=== PATIENT | female | born 1955 | race Caucasian/White ===

== ENCOUNTER 2016-11-28 16:12 | Emergency (ER) | payer BC ==
--- NOTE | 2016-11-28 16:24 | EDM.PDOC ---
ED HPI Trauma - General Chief Complaint: Trauma Stated Complaint: LEFT ANKLE Time Seen by Provider: 11/28/16 16:15 Source: Reports: Patient History Limitations: Reports: No limitations - History of Present Illness INITIAL COMMENTS - FREE TEXT/NARRATIVE: 61 yo female presents with L ankle pain after a fall on some steps in the dark. Has not been able to bear weight since the injury. Has minimal R ankle pain as well. Symptom Onset Date: 11/28/16 Symptom Onset Time: 15:15 Occurred When: just prior to arrival, this afternoon Occurred Where: other ([place]) Method of Injury: fall Severity: moderate Pain/Injury Location: Reports: lower extremity, right, lower extremity, left Consciousness: Reports: no loss of consciousness Associated Symptoms: Reports: denies other symptoms Allergies/ADRs: Allergies Penicillins Allergy (Verified 11/28/16 16:22) Rash red dye Allergy (Verified 11/28/16 16:23) Hives Home Medications: Ambulatory Orders . [Unable to Verify Home Med List] 05/29/14 [Confirmed 05/29/14] Past Medical History Other OB/BYN History: MENOPAUSE Social & Family History - Tobacco Use Smoking Status *Q: Never Smoker - Alcohol Use Days Per Week of Alcohol Use: 0 - Recreational Drug Use Recreational Drug Use: No - Living Situation & Occupation Living situation: Reports: single Occupation: employed Review of Systems - Review of Systems Review Of Systems: See Below Constitutional: Reports: no symptoms Ears: Reports: no symptoms Nose: Reports: no symptoms Respiratory: Reports: No Symptoms Cardiovascular: Reports: no symptoms GI/Abdominal: Reports: No symptoms Musculoskeletal: Reports: joint pain (L and R ankle pain), joint swelling (both ankles L > R) Skin: Reports: bruising (L distal tibia region. ) Neurological: Reports: No Symptoms Trauma Exam - Physical Exam Exam: See Below Exam Limited By: No limitations General Appearance: Reports: alert, WD/WN, no apparent distress Head: Reports: atraumatic, normocephalic Eyes: bilateral eye: normal inspection, PERRL Ears: Reports: normal external exam, normal canal, hearing grossly normal Nose: Reports: normal inspection, normal mucousa, no blood Throat/Mouth: Reports: Normal inspection, Normal lips, Normal voice, No airway compromise Neck: Reports: non-tender, full range of motion Respiratory Exam: Reports: no respiratory distress, no accessory muscle use Cardiovascular: Reports: regular rate, rhythm Back: Reports: non-tender Extremities: Reports: bony-point tenderness, pedal edema, tenderness, unable to bear weight, other (R ankle has some minimal swelling anterior to the lateral malleolus, negative drawer sign. L ankle is swollen and slightly ecchymotic about 3 cm above the medial malleolus. ) Neurologic: Reports: no motor/sensory deficits, alert, normal mood/affect, oriented x 3 Skin: Reports: Normal color - Terri Coma Score Best Eye Response (Terri): (4) open spontaneously Best Verbal Response (Supply): (5) oriented Best Motor Response (Supply): (6) obeys commands Supply Total: 15 Course - Vital Signs Text/Narrative:: L tib/fib [id number] fx without dislocation Toradol 60 mg IM, percocet [address] Crooks reached @ 1740h Splint applied. Crutches provided. Last Recorded V/S: Last Vital Signs Temp 36.1 C 11/28/16 16:23 Pulse 97 11/28/16 16:23 Resp 14 11/28/16 16:23 BP 145/88 H 11/28/16 16:23 Pulse Ox 98 11/28/16 16:23 - Orders/Labs/Meds Orders: Active Orders 24 hr Category Date Time Status Tibia Fibula Lt [CR] Stat Exams 11/28/16 16:17 Taken Sodium Chloride 0.9% [Saline Flush] Med 11/28/16 17:13 Active 10 ml FLUSH ASDIRECTED PRN Saline Lock Insert [OM.PC] Routine Oth 11/28/16 17:13 Ordered Medication Orders Sodium Chloride (Saline Flush) 10 ml FLUSH ASDIRECTED PRN PRN Reason: Keep Vein Open Meds: Medications Generic Name Dose Route Start Last Admin Trade Name Freq PRN Reason Stop Dose Admin Sodium Chloride 10 ml 11/28/16 17:13 Saline Flush FLUSH ASDIRECTED PRN Keep Vein Open Discontinued Medications Generic Name Dose Route Start Last Admin Trade Name Freq PRN Reason Stop Dose Admin Ketorolac Tromethamine 60 mg 11/28/16 17:06 Toradol IM 11/28/16 17:07 ONETIME ONE Ketorolac Tromethamine 30 mg 11/28/16 17:13 Toradol IVPUSH 11/28/16 17:14 ONETIME ONE Departure - Departure Time of Disposition: 18:15 Disposition: Home, Self-Care 01 Clinical Impression: Trimalleolar fracture of left ankle Qualifiers: Encounter type: initial encounter Fracture type: closed Qualified Code(s): S82.852A - Displaced trimalleolar fracture of left lower leg, initial encounter for closed fracture Referrals: PCP,None [Primary Care Provider] - - My Orders Last 24 Hours: My Active Orders 11/28/16 16:17 Tibia Fibula Lt [CR] Stat 11/28/16 17:13 Sodium Chloride 0.9% [Saline Flush] 10 ml FLUSH ASDIRECTED PRN Saline Lock Insert [OM.PC] Routine - Assessment/Plan Last 24 Hours: My Active Orders 11/28/16 16:17 Tibia Fibula Lt [CR] Stat 11/28/16 17:13 Sodium Chloride 0.9% [Saline Flush] 10 ml FLUSH ASDIRECTED PRN Saline Lock Insert [OM.PC] Routine
[2016-11-28] MEDS ORDERED: Ketorolac 60 MG/2 ML SDV IM ONE ×2 (17:06→17:45)
[2016-11-28] MEDS ORDERED: Sodium Chloride 0.9% 10 ML Syringe FLUSH PRN (17:13)
[2016-11-28] MEDS ORDERED: Ketorolac 30 MG/ML SDV IVPUSH ONE (17:13)
[2016-11-28] MEDS ORDERED: Acetaminophen/oxyCODONE 325-5 MG Tab PO ONE (17:57)
[2016-11-28] MEDS ORDERED: Acetaminophen/HYDROcodone 325-5 MG Tab PO ONE ×2 (18:02→18:10)
[2016-11-28 18:32] VITALS: BP 135/70
--- NOTE | 2016-11-29 09:43 | CR ---
INDICATION: Fell down stairs. LEFT TIBIA AND FIBULA: Four images of the left tibia and fibula in frontal and lateral projections revealed comminuted medial and lateral malleolar fractures with a posterior malleolar fracture also noted. Position and alignment appears to be fairly adequate, with only minimal offsets posteriorly at the posterior malleolar fracture fragment and the distal fibular fracture fragment. The ankle mortise may be slightly widened medially - minimal lateral subluxation of the talus with respect to the tibia may be present. No other fracture, dislocation, or other significant bone or joint abnormality was identified. IMPRESSION: Trimalleolar fracture with only minimal subluxation of the ankle mortise. MTDD
== END 2016-11-28 18:29 | disposition home or self-care (01) ==
LOC: FB.ED 16:12
DX: S82.852A Displaced trimalleolar fracture of left lower leg, initial encounter for closed fracture (principal); Z88.0 Allergy status to penicillin; Z91.041 Radiographic dye allergy status; X58.XXXA Exposure to other specified factors, initial encounter
CPT/HCPCS: 73590; 96372; 99283; A9270; J1885

== ENCOUNTER 2016-11-29 10:14 | Day surgery (SDC) | payer BC ==
[2016-11-29] MEDS ORDERED: hydrOXYzine HCl 50 MG/ML SDV IM ONE (11:15)
[2016-11-29] MEDS ORDERED: Succinylcholine 200 MG/10 ML MDV IV ONE (11:15)
[2016-11-29] MEDS ORDERED: Glycopyrrolate 0.2 MG/ML 2 ML SDV IV ONE (11:15)
[2016-11-29] MEDS ORDERED: Ondansetron 4 MG/2 ML SDV IVPUSH ONE (11:15)
[2016-11-29] MEDS ORDERED: diphenhydrAMINE 50 MG/ML SDV IV ONE (11:15)
[2016-11-29] MEDS ORDERED: Propofol 200 MG/20 ML SDV IV ONE (11:15)
[2016-11-29] MEDS ORDERED: Ketorolac 30 MG/ML SDV IVPUSH ONE (11:15)
[2016-11-29] MEDS ORDERED: Morphine 10 MG/ML Syringe IVPUSH ONE (11:15)
[2016-11-29] MEDS ORDERED: Dexamethasone 4 MG/ML 5 ML MDV IVPUSH ONE (11:15)
[2016-11-29] MEDS ORDERED: Rocuronium 100 MG/10 ML MDV IV ONE (11:15)
[2016-11-29] MEDS ORDERED: fentaNYL 100 MCG/2 ML SDV IV ONE (11:15)
[2016-11-29] MEDS ORDERED: Flumazenil 0.1 MG/ML 5 ML MDV IV ONE (11:15)
[2016-11-29] MEDS ORDERED: Neostigmine Methylsulfate 1 MG/ML 5 ML Syringe IV ONE (11:15)
[2016-11-29] MEDS ORDERED: Midazolam 1 MG/ML 2 ML SDV IV ONE (11:15)
[2016-11-29] MEDS ORDERED: Lactated Ringers 1,000 ML IV ONE (11:15)
[2016-11-29] MEDS ORDERED: Lactated Ringers 1,000 ML IV SCH (13:45)
[2016-11-29] MEDS ORDERED: Acetaminophen/HYDROcodone 325-5 MG Tab PO PRN (13:45)
--- NOTE | 2016-11-29 13:45 | CT ---
INDICATION: Left ankle fracture. CT ANKLES: Spiral 0.63-mm axial sections were obtained through the ankles bilaterally with sagittal and coronal reconstructions and revealed the trimalleolar fracture with lateral subluxation of the talus with respect to the tibia. Offset of the distal fracture fragments of the medial and lateral malleoli are noted, with some separation of the comminuted fracture fragments. Total Exam DLP = 652.32 mGy-cm. In the fibula, the fracture extends from the shaft into the distal metaphysis. The medial malleolar fracture site is also comminuted and there is additional posterior malleolar fracture fragment off the posterolateral aspect of the tibia with minimal lateral offset of that fracture fragment also noted. That fracture site is also comminuted. IMPRESSION: Comminuted fracture sites at the lateral, medial, and posterior malleoli with distraction of fracture fragments, offset of fracture fragments, and with subluxation laterally of the talus with respect to the tibia. MTDD
[2016-11-29] MEDS ORDERED: traMADol 50 MG Tab PO PRN (16:11)
--- NOTE | 2016-11-30 00:55 | OR ---
DATE OF OPERATION: 11/29/2016 SURGEON: Anthony Crooks MD PREOPERATIVE DIAGNOSIS: Displaced trimalleolar fracture, left ankle. POSTOPERATIVE DIAGNOSIS: Displaced trimalleolar fracture, left ankle. PROCEDURE PERFORMED: Open reduction and internal fixation of trimalleolar fracture, left ankle. Prior to surgery, we explained the risks, complications, expectations in the postoperative course. The patient wished to proceed. We also performed a CT scan to better visualize the unusual fracture that she had of the medial malleolus. PROCEDURE IN DETAIL: The patient was taken to the operating room after 300 mg of clindamycin was given IV. The patient was then given a general anesthetic once positioned carefully in the supine position on the operative table. Tourniquet was placed around the left thigh near the inguinal area. Left lower extremity was then elevated and tourniquet inflated to 250 mmHg pressure after a sterile ChloraPrep had been performed from the inferior margin of the patella distally to the foot. After the sterile prep and drape had been performed, the patient had a skin incision measuring approximately 6 inches over the lateral aspect of the ankle extending from the tip of the lateral malleolus proximally. Skin and subcutaneous tissues were carefully dissected through and hemostasis was achieved utilizing electrocautery. The patient had the fracture site brought into view and was debrided with a small rongeur and then with the use of a 4.0 cannulated partially threaded screw we then stabilized the fracture by placing it perpendicular to the fracture line. We then applied an 8-hole plate with 3 screws proximally and 2 distally. Attention was next diverted medially. We made an anterior-inferior incision of approximately 3.5 inches in length. Skin and subcutaneous tissues were carefully dissected through. The fracture was brought into view and debrided. It was a very unusual fracture of the medial malleolus, actually had one large cleavage fracture and then another partial fracture involving the tip of the medial malleolus. We irrigated the joint space and no significant problems were noted. The patient then had a 4.0 cannulated screw placed across the fracture site. We then placed another one parallel to it. X-rays were then taken that showed excellent reduction and internal fixation, although I did shorten the screw from 24 to 22 mm on the distal most screw of the lateral malleolar fracture plate. Thorough irrigation was carried out and then closure was begun. A 0 Vicryl for the deep subcutaneous tissue, 2-0 for the superficial subcutaneous tissue, and then renetta for the skin. Medially, because of the swelling, we did have to use a couple #2 nylons to approximate the skin. Afterwards, I made sure that there was good blanching of the skin before applying a short leg splint. The patient tolerated the procedure well. No complications were encountered. ESTIMATED BLOOD LOSS: Approximately 300 mL. COMPLICATIONS: None. Before the case was performed, we cautioned against the patient driving home and were concerned about her 90-year-old mother driving her home as well. Myself and the nurses felt that this was a little dangerous since her mother did have some trouble starting the car and getting it out of the ambulance entrance. Postoperatively, nurses also recommended against this and Mr. Meyers is working with the family to have them reconsider to have someone else drive Misty home as well as her mother. After surgery, the patient also was cautioned and neurovascular precautions in taking care of the splint. She is given my cell phone number to call, if there is any questions or problems arise concerning infection or compartment syndrome. /[phone] [id number] CARLEE/LUCAS MTDD
[2016-12-05 13:53] VITALS: BP 119/63
== END 2016-11-29 15:58 | disposition home or self-care (01) ==
LOC: FB.SDS 10:14 → FB.MS 15:42 → FB.SDS 15:58
PROVIDERS: ATTEND Orthopaedic Surgery
DX: S82.852A Displaced trimalleolar fracture of left lower leg, initial encounter for closed fracture (principal); Z88.0 Allergy status to penicillin; Z91.041 Radiographic dye allergy status; W10.9XXA Fall (on) (from) unspecified stairs and steps, initial encounter
CPT/HCPCS: 27822; 73610; 73700; A9270; J0330; J1100; J1200; J1885; J2250; J2270; J2405; J2704; J3010; J3410; J7120; C1713; C1776; J3490; J7050; S0077